=== PATIENT | female | born 1975 | race Caucasian/White ===

== ENCOUNTER 2018-11-08 11:36 | Outpatient (CLI) | payer BC ==
[~2018-11-08] VITALS: Ht 149.2 cm; Wt 57.2 kg
[2018-11-08] MEDS ORDERED: ELAG150T PO (11:37)
== END 2018-11-08 11:54 ==
LOC: PREOP 11:36
PROVIDERS: ATTEND Obstetrics & Gynecology
DX: Z01.818 Encounter for other preprocedural examination (principal)

== ENCOUNTER 2018-11-12 09:39 | Day surgery (SDC) | payer BC ==
[~2018-11-12] VITALS: Ht 149.2 cm; Wt 57.2 kg
[~2018-11-12 09:39] MED LIST: ELAG150T PO
[2018-11-12 09:50] VITALS: BP 110/81
--- NOTE | 2018-11-12 10:08 | Progress Note-Pre Operative ---
Pre-Operative Progress Note H&P Reviewed The H&P was reviewed, patient examined and no changes noted. Date Seen by Provider: Nov 12, 2018 Time Seen by Provider: 10:10 Date H&P Reviewed: Nov 12, 2018 Time H&P Reviewed: 07:30 Pre-Operative Diagnosis: endometriosis, pelvic pain, chronic LEONIE ROSS DO Nov 12, 2018 10:08
[2018-11-12] MEDS ORDERED: ceFAZolin INJECTION 1,000 MG in WATER (STERILE) FOR INJECTION 10 ML IV ONE (10:15)
[2018-11-12] MEDS: LACTATED RINGERS 1,000 ML IV PRN ×3 (10:17→12:03)
[2018-11-12] MEDS ORDERED: BUPIVACAINE 0.25% 30 ML (SENSORCAINE) VIAL ONE (10:22)
[2018-11-12] MEDS ORDERED: proPOfol 200 MG/20 ML (DIPRIVAN) VIAL IV ONE (10:22)
[2018-11-12] MEDS ORDERED: fentaNYL INJECTION 100 MCG/2 ML AMP ONE (10:22)
[2018-11-12] MEDS ORDERED: LIDOCAINE PF 2% 5 ML (XYLOCAINE) VIAL ONE (10:22)
[2018-11-12] MEDS ORDERED: ONDANSETRON 4 MG/2 ML (SDV) Z0FRAN ONE (10:22)
[2018-11-12] MEDS ORDERED: ROCURONIUM 10 MG/ML 5 ML SYRINGE IV ONE (10:22)
[2018-11-12] MEDS ORDERED: MIDAZOLAM 2 MG/2 ML (VERSED) VIAL ONE (10:22)
[2018-11-12 10:26] LABS: BASOPHILS % (AUTO) 1 % (0-10); EOSINOPHILS # (AUTO) 0.1 10^3/uL (0.0-0.3); EOSINOPHILS % (AUTO) 1 % (0-10); HEMATOCRIT 45 % (35-52); HEMOGLOBIN 15.2 G/DL (11.5-16.0); LYMPHOCYTES # (AUTO) 1.5 X 10^3 (1.0-4.0); LYMPHOCYTES % (AUTO) 33 % (12-44); MEAN CORPUSCULAR HEMOGLOBIN 30 PG (25-34); MEAN CORPUSCULAR HGB CONC 34 G/DL (32-36); MEAN CORPUSCULAR VOLUME 88 FL (80-99); MEAN PLATELET VOLUME 10.7 FL (7.4-10.4); MONOCYTES # (AUTO) 0.4 X 10^3 (0.0-1.0); MONOCYTES % (AUTO) 8 % (0-12); NEUTROPHILS # (AUTO) 2.6 X 10^3 (1.8-7.8); NEUTROPHILS % (AUTO) 57 % (42-75); PLATELET COUNT 215 10^3/uL (130-400); RED CELL DISTRIBUTION WIDTH 12.8 % (10.0-14.5); WHITE BLOOD COUNT 4.6 10^3/uL (4.3-11.0)
[2018-11-12] MEDS ORDERED: SEVOFLURANE (ULTANE) 15 ML INHAL SOLN ONE ×8 (10:26→12:16)
[2018-11-12] MEDS ORDERED: DEXAMETHASONE 10 MG/ML (DECADRON) 1 ML VIAL ONE (10:26)
--- OUTSIDE RECORDS SUMMARY | 2018-11-12 11:13 | XMS REPORT | Continuity of Care Document ---
Author Organization Unknown Address Unknown Allergies Active Description Code Type Severity Reaction Onset Reported/Identified Relationship to Patient Clinical Status Yes No Known Drug Allergies [id number] Drug Allergy Unknown N/A 11/08/2018 Medications There is no data. Problems Date Dx Coded Attending Type Code Diagnosis Diagnosed By 08/18/2015 Ot 620.2 09/21/2015 Ot 620.2 09/21/2015 ANTHONY LEVINE A COURTROOM REPORTER Ot N83.9 09/21/2015 DREW LEVINESAY A COURTROOM REPORTER Ot N85.2 09/21/2015 ANTHONY LEVINE A COURTROOM REPORTER Ot N92.6 09/21/2015 DREW LEVINESAY A COURTROOM REPORTER Ot Z87.42 09/23/2015 Ot 620.2 09/23/2015 DREW LEVINESAY A COURTROOM REPORTER Ot N83.9 09/23/2015 DREW LEVINESAY A COURTROOM REPORTER Ot N85.2 09/23/2015 DREW LEVINESAY A COURTROOM REPORTER Ot N92.6 09/23/2015 DREW LEVINESAY A COURTROOM REPORTER Ot Z87.42 10/12/2015 Ot 620.2 10/12/2015 DREW LEVINESAY A COURTROOM REPORTER Ot N83.9 10/12/2015 DREW LEVINESAY A COURTROOM REPORTER Ot N85.2 10/12/2015 DREW LEVINESAY A COURTROOM REPORTER Ot N92.6 10/12/2015 DREW LEVINESAY A COURTROOM REPORTER Ot Z87.42 03/15/2018 ANTHONY LEVINE A COURTROOM REPORTER Ot N83.9 NONINFLAMMATORY DISORD OF OVARY, FALLOP 03/15/2018 ANTHONY LEVINE A COURTROOM REPORTER Ot N85.2 HYPERTROPHY OF UTERUS 03/15/2018 ANTHONY LEVINE A COURTROOM REPORTER Ot N92.6 IRREGULAR MENSTRUATION, UNSPECIFIED 03/15/2018 ABNER, ANTHONY A COURTROOM REPORTER Ot Z87.42 PERSONAL HISTORY OF OTH DISEASES OF THE 03/18/2018 DENNYSDAMIAN ANTHONY A COURTROOM REPORTER Ot N83.9 NONINFLAMMATORY DISORD OF OVARY, FALLOP 03/18/2018 DENNYSDAMIAN ANTHONY A COURTROOM REPORTER Ot N85.2 HYPERTROPHY OF UTERUS 03/18/2018 DENNYSANTHONY SALGADO COURTROOM REPORTER Ot N92.6 IRREGULAR MENSTRUATION, UNSPECIFIED 03/18/2018 DENNYSDAMIAN ANTHONY A COURTROOM REPORTER Ot Z87.42 PERSONAL HISTORY OF OTH DISEASES OF THE 03/25/2018 ROSS DO, LEONIE C Ot Z12.31 ENCNTR SCREEN MAMMOGRAM FOR MALIGNANT NE 04/02/2018 ROSS DO, LEONIE C Ot Z12.31 ENCNTR SCREEN MAMMOGRAM FOR MALIGNANT NE 04/02/2018 ROSS DO, LEONIE C Ot Z12.31 ENCNTR SCREEN MAMMOGRAM FOR MALIGNANT NE 04/10/2018 ROSS DO, LEONIE C Ot Z12.31 ENCNTR SCREEN MAMMOGRAM FOR MALIGNANT NE 11/08/2018 ROSS DO, LEONIE C Ot Z01.818 ENCOUNTER FOR OTHER PREPROCEDURAL EXAMIN 11/09/2018 ROSS DO, LEONIE C Ot Z01.818 ENCOUNTER FOR OTHER PREPROCEDURAL EXAMIN 11/12/2018 DENNYSDAMIAN ANTHONY A COURTROOM REPORTER Ot N83.9 NONINFLAMMATORY DISORD OF OVARY, FALLOP 11/12/2018 DENNYSDAMIAN ANTHONY A COURTROOM REPORTER Ot N85.2 HYPERTROPHY OF UTERUS 11/12/2018 ANTHONY LEVINE COURTROOM REPORTER Ot N92.6 IRREGULAR MENSTRUATION, UNSPECIFIED 11/12/2018 DENNYSDAMIAN ANTHONY A COURTROOM REPORTER Ot Z87.42 PERSONAL HISTORY OF OTH DISEASES OF THE Procedures There is no data. Results Test Result Range Urine beta human chorionic gonadotropin (hCG) measurement - 11/12/18 09:45 Urine beta human chorionic gonadotropin (hCG) measurement NEGATIVE NEGATIVE Complete blood count (CBC) with automated white blood cell (WBC) differential - 11/12/18 10:17 Blood leukocytes automated count (number/volume) 4.6 10*3/uL 4.3-11.0 Blood erythrocytes automated count (number/volume) 5.07 10*6/uL 4.35-5.85 Venous blood hemoglobin measurement (mass/volume) 15.2 g/dL 11.5-16.0 Blood hematocrit (volume fraction) 45 % 35-52 Automated erythrocyte mean corpuscular volume 88 [foz_us] 80-99 Automated erythrocyte mean corpuscular hemoglobin (mass per erythrocyte) 30 pg 25-34 Automated erythrocyte mean corpuscular hemoglobin concentration measurement ( mass/volume) 34 g/dL 32-36 Automated erythrocyte distribution width ratio 12.8 % 10.0-14.5 Automated blood platelet count (count/volume) 215 10*3/uL 130-400 Automated blood platelet mean volume measurement 10.7 [foz_us] 7.4-10.4 Automated blood neutrophils/100 leukocytes 57 % 42-75 Automated blood lymphocytes/100 leukocytes 33 % 12-44 Blood monocytes/100 leukocytes 8 % 0-12 Automated blood eosinophils/100 leukocytes 1 % 0-10 Automated blood basophils/100 leukocytes 1 % 0-10 Blood neutrophils automated count (number/volume) 2.6 10*3 1.8-7.8 Blood lymphocytes automated count (number/volume) 1.5 10*3 1.0-4.0 Blood monocytes automated count (number/volume) 0.4 10*3 0.0-1.0 Automated eosinophil count 0.1 10*3/uL 0.0-0.3 Automated blood basophil count (count/volume) 0.0 10*3/uL 0.0-0.1 Encounters ACCT No. Visit Date/Time Discharge Status Pt. Type Provider Facility Loc./Unit Complaint [id number] 11/08/2018 11:36:00 11/08/2018 11:54:00 DIS Outpatient LEONIE ROSS DO [facility] PREOP ENDOMETRIOSIS [id number] 03/22/2018 14:59:00 03/22/2018 23:59:59 CLS Outpatient LEONIE ROSS DO [facility] RAD Z12.31 SCREENING MAMMO [id number] 08/18/2015 09:58:00 08/18/2015 23:59:59 CLS Outpatient ANTHONY LEVINE APRN [facility] RAD ENLARGED UTERUS, IRREGULAR MENSES [id number] 11/12/2018 09:39:00 ACT Outpatient LEONIE ROSS DO [facility] ENDOMETRIOSIS [id number] 10/17/2011 09:11:00 Document Registration
[2018-11-12] MEDS ORDERED: PHENYLEPHRINE 100 MCG/ML 10 ML (ANESTHESIA) SYR ONE (11:40)
[2018-11-12] MEDS ORDERED: NEOSTIGMINE 1 MG/ML 5 ML SYRINGE ONE (12:18)
[2018-11-12] MEDS ORDERED: GLYCOPYRROLATE 0.2 MG/ML (ROBINUL) 2 ML VIAL ONE (12:18)
[2018-11-12] MEDS ORDERED: KETOROLAC 30 MG/ML VIAL ONE (12:28)
[2018-11-12] MEDS ORDERED: HYDROmorphone 2 MG/ML VIAL (DILAUDID) IV ONE (13:00)
[2018-11-12] MEDS ORDERED: morphine INJ 10 MG/ML 1ML (SYR OR VIAL) IVP ONE (13:00)
[2018-11-12] MEDS ORDERED: ONDANSETRON 4 MG/2 ML (SDV) Z0FRAN IVP PRN ×2 (13:00→14:30)
[2018-11-12] MEDS ORDERED: MEPERIDINE (DEMEROL) INJ 50 MG/ML IVP ONE (13:00)
--- NOTE | 2018-11-12 13:45 | NUR ---
RENITA NEAL admitted to room , with an admitting diagnosis of postop laperotomy, on 11/12/18 from [facility] via cart, accompanied by par staff.RENITA NEAL introduced to surroundings, call light, bed controls, phone, TV, temperature control, lights, meal times, smoking policy, visitor policy, side rail policy, bathrooms and showers. Patient Rights given to patient in the handbook. RENITA NEAL verbalizes understanding that [facility] is not responsible for the loss or damage to any personal effects or valuables that are kept in the patients posession during their hospitalization. The following Patient Care Plans were discussed with the patient: Discharge Planning, pain management, postop care plan. RENITA NEAL verbalizes understanding of Interdisciplinary Patient Education. Patient and/or family were informed about the Rapid Response Team and its purpose.
[2018-11-12 14:15] VITALS: BP 108/65
[2018-11-12] MEDS ORDERED: morphine INJ 10 MG/ML 1ML (SYR OR VIAL) IVP PRN (14:30)
--- NOTE | 2018-11-12 14:37 | Operative Report ---
Operative Report Date of Procedure/Surgery Nov 12, 2018 Surgeon (s) LEONIE ROSS DO Club Attendant (s): NA Post-Operative Diagnosis Stage IV endometriosis, left endometrioma Procedure Performed diagnostic laparoscopy, converted to minilaparotomy with left salpingoophorectomy, right salpingectomy, extensive lysis of adhesions Description of Procedure Anesthesia Type: General Estimated blood loss (mL): 100 Specimen(s) collected/removed left tube and ovary, right tube Description of the Procedure with informed consent the patient was taken to the operating room where general anesthesia was found to be adequate. She was prepped and draped in the usual sterile fashion in the dorsolithotomy position. A speculum was placed in the vagina and the cervix was grasped with a tenaculum and a Jose uterine manipulator was placed in the cervix. The bladder was drained or clear, yellow urine. Attention was now turned to the abdomen where the umbilicus was injected with 0.5% Marcaine and then a 5 mm skin incision was made with a scalpel. a Veress needle was inserted and intraabdominal placement was confirmed with a saline drop test and a drop in pressure. A 5 mm trocar was inserted under direct visualization with an Optiview. A survey of the pelvis revealed extensive adhesions, endometriosis in multiple locations, a 5-6 cm cyst on the left ovary that appeared to be an endometrioma. The tube and ovary were adherent and then adherent to the colon on the left and the posterior uterus. The culdesac was completely obliterated. The right tube was adherent as well. At this time I determined that it would be safer to proceed with a laparotomy. I made a Pfannenstiel incision with the scalpel and then this was carried through to the underlying layer of fascia with the scalpel. This was incised in the midline and then the rectus muscles were dissected off the underlying muscles in a blunt and sharp fashion. The rectus muscles were in the midline and then the peritoneum was entered with the Metzenbaum scissors and this incision was extended superiorly and inferiorly. The bowel was packed away and a small Woodrow retractor was placed. i then did extensive lysis of adhesions of the colon to the uterus and the uterus to the posterior pelvis. Then I dissected the right tube off the ovarian fossa and it was noted to be clubbed. At this time I performed extensively lysis of the left tube to the colon. This was done bluntly. I then was able to isolated the infundibulopelvic ligament on the left. Grasped this with a Z clamp and then incised and tied with 2-0 Vicryl. I then clamped the tube at the cornu and this was incised and tied. This thus removed the left tube and ovary. I now removed the right tube by incising along the mesosalpinx. Grasping the tube at the cornu and then excision and ligating with the 2-0 Vicryl. I now excessively irrigated the pelvis. There was good hemostasis. At this point the lap sponges were removed and the Woodrow was removed. The peritoneum was closed with 3-0 Vicryl. The fascia was reapproximated with 0 Vicryl in a running fashion. The skin was closed with 4-0 Monocryl in a running fashion. A bandage was placed. sponge, lap, needle and instrument counts were correct times two. the patient was awakened and taken to recovery in a stable. condition. Findings of the Procedure large (5-6 cm) endometrioma on the left, adherent to the colon and to the left tube and posterior uterus. The culdesac is completely obliterated, the right tube is clubbed and adherent to the left ovary as well and the ovarian fossa. Multiple foci of endometriosis throughout the pelvis. Allergies and Home Medications Allergies Coded Allergies: No Known Drug Allergies (Unverified , 11/08/18) Home Medications Acetaminophen 500 Mg Tablet, 1,000 MG PO Q8H Prescribed by: LEONIE ROSS on 11/13/18833 Docusate Sodium 100 Mg Capsule, 100 MG PO BID Prescribed by: LEONIE ROSS on 11/13/18833 Elagolix Sodium 150 Mg Tablet, 150 MG PO BID increase to twice daily. Will continue for at least three more months Prescribed by: LEONIE ROSS on 11/13/18833 Ibuprofen 600 Mg Tablet, 600 MG PO Q6H Prescribed by: LEONIE ROSS on 11/13/18833 Oxycodone Hcl 5 Mg Tab, 5 MG PO Q4H PRN for PAIN-SEVERE Prescribed by: LEONIE ROSS on 11/13/18833 Patient Home Medication List Home Medication List Reviewed: Yes LEONIE ROSS DO Nov 12, 2018 14:37
[2018-11-12] MEDS: ACETAMINOPHEN 500 MG TAB (TYLENOL) PO SCH (19:05)
[2018-11-12 19:30] VITALS: BP 107/65
[2018-11-12] MEDS: KETOROLAC 30 MG/ML VIAL IVP SCH (19:34)
[2018-11-12] MEDS: LACTATED RINGERS 1,000 ML IV SCH ×2 (20:03→20:04)
[2018-11-13] VITALS: BP 97/57
[2018-11-13] MEDS: KETOROLAC 30 MG/ML VIAL IVP SCH (02:30)
[2018-11-13] MEDS: ACETAMINOPHEN 500 MG TAB (TYLENOL) PO SCH ×2 (02:30→12:29)
[2018-11-13] MEDS: LACTATED RINGERS 1,000 ML IV SCH ×2 (03:50→03:53)
[2018-11-13 04:20] VITALS: BP 92/50
--- NOTE | 2018-11-13 08:14 | Anesthesia-General Post-Op ---
General Patient Condition Mental Status/LOC: Same as Preop Cardiovascular: Satisfactory Nausea/Vomiting: Absent Respiratory: Satisfactory Pain: Controlled Complications: Absent Post Op Complications Complications None Follow Up Care/Instructions Patient Instructions None needed. Anesthesia/Patient Condition Patient Condition Patient is doing well, no complaints, stable vital signs, no apparent adverse anesthesia problems. No complications reported per nursing. D/C home per [facility] Criteria: Yes MARIAM HOLMAN CRNA Nov 13, 2018 08:14
[2018-11-13] MEDS ORDERED: OXC5T PO (08:34)
[2018-11-13] MEDS ORDERED: IBUP-844 PO (08:34)
[2018-11-13] MEDS ORDERED: ELAG150T PO (08:34)
[2018-11-13] MEDS ORDERED: DOCU100C37 PO (08:34)
[2018-11-13] MEDS ORDERED: ACET-77 PO (08:34)
--- NOTE | 2018-11-13 08:36 | Discharge Inst-Women's Service ---
Discharge Inst-Women's Serv Depart Medication/Instructions New, Converted or Re-Newed RX: RX on Chart Instructions increase Orilissa to twice daily dosing. Will recommend continue for at least three more months Final Diagnosis Stage IV (four) endometriosis Left endometrioma Consults/Follow Up Additional Follow Up: Yes (1 -2 weeks with Greg) Activity Activity: Activity as Tolerated Driving Instructions: No Driving for 1 Week NO SMOKING: NO SMOKING Nothing Inside Vagina: No Douching, No [place] (1-2 weeks), No Tampons Diet Discharge Diet: No Restrictions Symptoms to Report to : Swelling Increased, Bleeding Excessive, Pain Increased, Constipation(Persistant), Fever Over 101 Degrees F, Urination Difficulty, Vaginal Bleeding Increase, Vaginal Discharge Foul For Any Problems or Questions: Contact Your Physician Skin/Wound Care Infection Signs and Symptoms: Increased Redness, Foul Odor of Wound, Increased Drainage, Skin Itchy or Has a Rash, Increased Swelling, Temperature Above 101 F Operative Area Clean and Dry: Keep Incision Clean/Dry Stitches/Latanya/Dermabond: Dermabond Bathing Instructions: LEONIE Irizarry DO Nov 13, 2018 08:36
[2018-11-13 08:55] LABS: BASOPHILS % (AUTO) 0 % (0-10); EOSINOPHILS % (AUTO) 0 % (0-10); HEMATOCRIT 39 % (35-52); HEMOGLOBIN 13.3 G/DL (11.5-16.0); LYMPHOCYTES # (AUTO) 1.3 X 10^3 (1.0-4.0); LYMPHOCYTES % (AUTO) 14 % (12-44); MEAN CORPUSCULAR HEMOGLOBIN 30 PG (25-34); MEAN CORPUSCULAR HGB CONC 34 G/DL (32-36); MEAN CORPUSCULAR VOLUME 90 FL (80-99); MEAN PLATELET VOLUME 10.5 FL (7.4-10.4); MONOCYTES # (AUTO) 0.8 X 10^3 (0.0-1.0); MONOCYTES % (AUTO) 9 % (0-12); NEUTROPHILS # (AUTO) 7.3 X 10^3 (1.8-7.8); NEUTROPHILS % (AUTO) 77 % (42-75); PLATELET COUNT 233 10^3/uL (130-400); WHITE BLOOD COUNT 9.5 10^3/uL (4.3-11.0)
[2018-11-13] MEDS ORDERED: DOCUSATE SODIUM 100 MG (COLACE) CAP PO SCH (09:00)
--- NOTE | 2018-11-13 09:10 | NUR ---
Dr Garza here to see pt. Dr Garza reports pt voided. D/C orders rec'd.
[2018-11-13 09:16] LABS: BUN/CREATININE RATIO 17; CALCIUM 9.2 MG/DL (8.5-10.1); CARBON DIOXIDE 24 MMOL/L (21-32); CHLORIDE 105 MMOL/L (98-107); CREATININE SERUM 0.71 MG/DL (0.60-1.30); GFR ESTIMATED > 60; GLUCOSE 101 MG/DL (70-105); POTASSIUM 3.7 MMOL/L (3.6-5.0); SODIUM 138 MMOL/L (135-145)
[2018-11-13] MEDS ORDERED: IBUPROFEN 600 MG (MOTRIN) TAB PO ONE (09:45)
[2018-11-13 09:49] VITALS: BP 100/63
--- NOTE | 2018-11-13 10:02 | NUR ---
Follow up appt mad with Dr. Garza's office
--- NOTE | 2018-11-13 12:35 | NUR ---
Discharge instructions explained to pt with copy provided to pt along with oxycodone script. Pt notified of follow up appt made and scripts available at [facility]. Pt verbalizes understanding of instructions, and signs to verify. Denies questions or concerns at this time. Extra pads and underwear provided per pt request.
--- NOTE | 2018-11-13 12:45 | NUR ---
Pt taken off unit via wheelchair accompanied by RN to awaiting private vehicle. All personal belongings taken to vehicle per S.O. No s/s of distress noted
[2018-11-13] MEDS ORDERED: SIMETHICONE 80 MG (MYLICON) CHEW PO SCH (13:00)
[2018-11-13] MEDS ORDERED: IBUPROFEN 600 MG (MOTRIN) TAB PO SCH (14:00)
== END 2018-11-13 12:45 | disposition home or self-care (01) ==
LOC: SDC 09:39 → WS 13:45 → SDC 11-13 12:45
PROVIDERS: ATTEND Obstetrics & Gynecology
DX: N80.1 Endometriosis of ovary (principal); N80.3 Endometriosis of pelvic peritoneum; N73.6 Female pelvic peritoneal adhesions (postinfective); N94.19 Other specified dyspareunia; N80.2 Endometriosis of fallopian tube; N94.89 Other specified conditions associated with female genital organs and menstrual cycle; N83.202 Unspecified ovarian cyst, left side
CPT/HCPCS: 36415; 80048; 84703; 85025; 87081; 88305; 94664

== ENCOUNTER 2019-03-04 17:39 | Emergency (ER) | payer BC ==
[~2019-03-04] VITALS: Ht 152.4 cm; Wt 54.9 kg
[~2019-03-04 17:39] MED LIST changes: +ACET-77 PO; +DOCU100C37 PO; +IBUP-844 PO; +OXC5T PO
[2019-03-04 17:59] LABS: BASOPHILS % (AUTO) 0 % (0-10); EOSINOPHILS % (AUTO) 1 % (0-10); HEMATOCRIT 47 % (35-52); HEMOGLOBIN 16.1 G/DL (11.5-16.0); LYMPHOCYTES # (AUTO) 0.6 X 10^3 (1.0-4.0); LYMPHOCYTES % (AUTO) 9 % (12-44); MEAN CORPUSCULAR HEMOGLOBIN 30 PG (25-34); MEAN CORPUSCULAR HGB CONC 35 G/DL (32-36); MEAN CORPUSCULAR VOLUME 87 FL (80-99); MEAN PLATELET VOLUME 10.4 FL (7.4-10.4); MONOCYTES # (AUTO) 0.4 X 10^3 (0.0-1.0); MONOCYTES % (AUTO) 5 % (0-12); NEUTROPHILS % (AUTO) 85 % (42-75); PLATELET COUNT 213 10^3/uL (130-400); RED CELL DISTRIBUTION WIDTH 13.5 % (10.0-14.5)
[2019-03-04 18:16] LABS: BILIRUBIN,URINE NEGATIVE (NEGATIVE); CLARITY,URINE CLEAR; COLOR,URINE YELLOW; GLUCOSE, URINE (UA) NEGATIVE (NEGATIVE); KETONES,URINE 2+ (NEGATIVE); LEUKOCYTE ESTERASE ,URINE 1+ (NEGATIVE); NITRITE,URINE NEGATIVE (NEGATIVE); PH,URINE 6 (5-9); PROTEIN,URINE 2+ (NEGATIVE); UROBILINOGEN,URINE NORMAL (NORMAL)
[2019-03-04 18:19] LABS: ALANINE AMINOTRANSFERASE 27 U/L (0-55); ALBUMIN 4.6 GM/DL (3.2-4.5); ALKALINE PHOSPHATASE 103 U/L (40-136); AMYLASE 46 U/L (25-125); BILIRUBIN,TOTAL 0.5 MG/DL (0.1-1.0); BUN/CREATININE RATIO 11; CALCIUM 9.9 MG/DL (8.5-10.1); CARBON DIOXIDE 21 MMOL/L (21-32); CHLORIDE 101 MMOL/L (98-107); CREATININE SERUM 0.76 MG/DL (0.60-1.30); GFR ESTIMATED > 60; GLUCOSE 85 MG/DL (70-105); LIPASE 17 U/L (8-78); SODIUM 137 MMOL/L (135-145); TOTAL PROTEIN 8.3 GM/DL (6.4-8.2)
[2019-03-04 18:20] LABS: BACTERIA,URINE FEW /HPF; HYALINE CASTS, URINE RARE /LPF; RBC,URINE RARE /HPF
--- NOTE | 2019-03-04 18:45 | NUR ---
Recieved pt report from DILAN Kurtz to assume care of pt @ this time.
--- NOTE | 2019-03-04 19:14 | ED GI ---
General Chief Complaint: Abdominal/GI Problems Stated Complaint: N/D;ABD PAIN Nursing Triage Note: Pt ambulates to rm 9 with complaints of suprapubic abdominal pain with N/V and diarrhea since 03/01/19. Pt reports she's also had fever/chills since 03/02/19. Pt said she hasn't been able to keep any food/drink down since Sunday d/t nausea and diarrhea. Sepsis Screen: Possible Sepsis Risk Source of Information: Patient Exam Limitations: No Limitations History of Present Illness Date Seen by Provider: Mar 04, 2019 Time Seen by Provider: 17:40 Initial Comments 43-year-old female who presents to the emergency room with complaints of generalized abdominal pain with nausea and vomiting and diarrhea for the past 4 days. She reports that she has had intermittent fevers and chills. She reports that she has not minimal keep anything down due to her nausea and vomiting. Timing/Duration: 3-4 Days Severity/Quality: Cramping Location: Generalized Abdomen Associated Symptoms: Nausea/Vomiting Allergies and Home Medications Allergies Coded Allergies: No Known Drug Allergies (Unverified , 11/08/18) Home Medications Acetaminophen 500 Mg Tablet, 1,000 MG PO Q8H Prescribed by: LEONIE ROSS on 11/13/18833 Docusate Sodium 100 Mg Capsule, 100 MG PO BID Prescribed by: LEONIE ROSS on 11/13/18833 Elagolix Sodium 150 Mg Tablet, 150 MG PO BID increase to twice daily. Will continue for at least three more months Prescribed by: LEONIE ROSS on 11/13/1834 Hyoscyamine Sulfate 0.125 Mg Tab.subl, 0.125 MG SL Q4H PRN for CRAMPS Prescribed by: RAKESH REECE on 03/04/191914 Ibuprofen 600 Mg Tablet, 600 MG PO Q6H Prescribed by: LEONIE ROSS on 11/13/1834 Nitrofurantoin Monohyd/M-Cryst 100 Mg Capsule, 1 TAB PO BID Prescribed by: RAKESH REECE on 03/04/191914 Ondansetron 4 Mg Tab.rapdis, 4 MG PO Q4H PRN for NAUSEA/VOMITING-1ST LINE Prescribed by: RAKESH REECE on 03/04/191914 Oxycodone Hcl 5 Mg Tab, 5 MG PO Q4H PRN for PAIN-SEVERE Prescribed by: LEONIE ROSS on 11/13/18 4799 Patient Home Medication List Home Medication List Reviewed: Yes Review of Systems Review of Systems Constitutional: see HPI, chills, fever Gastrointestinal: See HPI, Abdominal Pain, Diarrhea, Nausea, Vomiting All Other Systems Reviewed Negative Unless Noted: Yes Past Nnbtcps-Qugqqp-Xwgiuk Hx Past Med/Social Hx: Reviewed Nursing Past Med/Soc Hx Patient Social History Alcohol Use: Denies Use Recreational Drug Use: No Smoking Status: Never a Smoker 2nd Hand Smoke Exposure: No Recent Foreign Travel: No Contact w/Someone Who Travel: No Recent Infectious Disease Expo: No Recent Hopitalizations: No Seasonal Allergies Seasonal Allergies: No Past Medical History Surgeries: No Respiratory: No Cardiac: No Neurological: No Female Reproductive Disorders: Endometriosis Genitourinary: No Gastrointestinal: No Musculoskeletal: No Endocrine: No HEENT: No Cancer: No Psychosocial: No Integumentary: No Blood Disorders: No Family Medical History Reviewed Nursing Family Hx Physical Exam Vital Signs Vital Signs - First Documented 03/04/19 17:55 Temp 100.0 Pulse 101 Resp 18 B/P (MAP) 127/91 (103) Pulse Ox 99 O2 Delivery Room Air Capillary Refill : Less Than 3 Seconds Height/Weight/BMI Height: 5'0" Weight: 121lbs. 0.0oz. [id number]; 25.7 BMI Method:Stated General Appearance: WD/WN, no apparent distress Respiratory: chest non-tender, lungs clear, normal breath sounds, no respiratory distress, no accessory muscle use Cardiovascular: normal peripheral pulses, regular rate, rhythm, no edema, no gallop, no JVD, no murmur Gastrointestinal: normal bowel sounds, non tender, soft, no organomegaly, no pulsatile mass Extremities: normal capillary refill Neurologic/Psychiatric: alert, normal mood/affect, oriented x 3 Skin: normal color, warm/dry Progress/Results/Core Measures Results/Orders Lab Results Laboratory Tests Test 03/04/19 17:51 03/04/19 18:13 Range/Units White Blood Count 7.0 4.3-11.0 10^3/uL Red Blood Count 5.36 4.35-5.85 10^6/uL Hemoglobin 16.1 H 11.5-16.0 G/DL Hematocrit 47 35-52 % Mean Corpuscular Volume 87 80-99 FL Mean Corpuscular Hemoglobin 30 25-34 PG Mean Corpuscular Hemoglobin Concent 35 32-36 G/DL Red Cell Distribution Width 13.5 10.0-14.5 % Platelet Count 213 130-400 10^3/uL Mean Platelet Volume 10.4 7.4-10.4 FL Neutrophils (%) (Auto) 85 H 42-75 % Lymphocytes (%) (Auto) 9 L 12-44 % Monocytes (%) (Auto) 5 0-12 % Eosinophils (%) (Auto) 1 0-10 % Basophils (%) (Auto) 0 0-10 % Neutrophils # (Auto) 6.0 1.8-7.8 X 10^3 Lymphocytes # (Auto) 0.6 L 1.0-4.0 X 10^3 Monocytes # (Auto) 0.4 0.0-1.0 X 10^3 Eosinophils # (Auto) 0.0 0.0-0.3 10^3/uL Basophils # (Auto) 0.0 0.0-0.1 10^3/uL Sodium Level 137 135-145 MMOL/L Potassium Level 4.0 3.6-5.0 MMOL/L Chloride Level 101 98-107 MMOL/L Carbon Dioxide Level 21 21-32 MMOL/L Anion Gap 15 H 5-14 MMOL/L Blood Urea Nitrogen 8 7-18 MG/DL Creatinine 0.76 0.60-1.30 MG/DL Estimat Glomerular Filtration Rate > 60 BUN/Creatinine Ratio 11 Glucose Level 85 70-105 MG/DL Calcium Level 9.9 8.5-10.1 MG/DL Corrected Calcium 8.5-10.1 MG/DL Total Bilirubin 0.5 0.1-1.0 MG/DL Aspartate Amino Transf (AST/SGOT) 26 5-34 U/L Alanine Aminotransferase (ALT/SGPT) 27 0-55 U/L Alkaline Phosphatase 103 40-136 U/L Total Protein 8.3 H 6.4-8.2 GM/DL Albumin 4.6 H 3.2-4.5 GM/DL Amylase Level 46 25-125 U/L Lipase 17 8-78 U/L Urine Color YELLOW Urine Clarity CLEAR Urine pH 6 5-9 Urine Specific [place] 1.015 L 1.016-1.022 Urine Protein 2+ H NEGATIVE Urine Glucose (UA) NEGATIVE NEGATIVE Urine Ketones 2+ H NEGATIVE Urine Nitrite NEGATIVE NEGATIVE Urine Bilirubin NEGATIVE NEGATIVE Urine Urobilinogen NORMAL NORMAL MG/DL Urine Leukocyte Esterase 1+ H NEGATIVE Urine RBC (Auto) 2+ H NEGATIVE Urine RBC RARE /HPF Urine WBC 2-5 /HPF Urine Squamous Epithelial Cells 2-5 /HPF Urine Crystals NONE /LPF Urine Bacteria FEW H /HPF Urine Casts PRESENT /LPF Urine Hyaline Casts RARE /LPF Urine Mucus SMALL H /LPF Urine Culture Indicated YES Micro Results Microbiology 03/04/19 Urine Culture - Final, Complete NO GROWTH My Orders Orders - RAKESH REECE Comprehensive Metabolic Panel (03/04/19 17:42) Lipase (03/04/19 17:42) Amylase (03/04/19 17:42) Ua Culture If Indicated (03/04/19 17:42) Ed Iv/Invasive Line Start (03/04/19 17:42) Cbc With Automated Diff (03/04/19 17:42) Urine Culture (03/04/19 18:13) Vital Signs/I&O 03/04/19 03/04/19 17:55 19:23 Temp 100.0 98.9 Pulse 101 99 Resp 18 17 B/P (MAP) 127/91 (103) 111/77 (88) Pulse Ox 99 99 O2 Delivery Room Air Room Air Blood Pressure Mean: 103 Progress Progress Note : Time: 19:10 Progress Note I have seen and evaluated the patient. I've informed her of her laboratory studies. I believe her symptoms to be viral. She agrees with plan of care, plans for discharge, return precautions were given. Departure Impression Primary Impression: Urinary tract infection Additional Impression: Nausea vomiting and diarrhea Disposition: HOME, SELF-CARE Condition: Stable/Unchanged Departure-Patient Inst. Decision time for Depature: 19:10 Referrals: [facility] (PCP/Family) Primary Care Physician Patient Instructions: Viral Gastroenteritis, Adult (DC), Urinary Tract Infection, Adult (DC) Add. Discharge Instructions: Take medication as directed. You may use OTC antidiarrheal medications as directed. Follow up with your primary care doctor with in 1 week for a recheck. Return to the emergency room for worsening symptoms or concerns as needed. All discharge instructions reviewed with patient and/or family. Voiced understanding. Scripts Ondansetron (Ondansetron Odt) 4 Mg Tab.rapdis 4 MG PO Q4H PRN for NAUSEA/VOMITING-1ST LINE, #14 TAB Prov: RAKESH REECE 03/04/19 Hyoscyamine Sulfate (Levsin-Sl) 0.125 Mg Tab.subl 0.125 MG SL Q4H PRN for CRAMPS, #14 TAB Prov: RAKESH REECE 03/04/19 Nitrofurantoin Monohyd/M-Cryst (Macrobid 100 mg Capsule) 100 Mg Capsule 1 TAB PO BID for 7 Days, #14 CAP Prov: RAKESH REECE 03/04/19 Work/School Note: Work Release Form Date Seen in the Emergency Department: Mar 04, 2019 Return to Work: Mar 07, 2019 Restrictions: No Restrictions RAKESH REECE Mar 04, 2019 19:14
[2019-03-04] MEDS ORDERED: NITR-65 PO (19:15)
[2019-03-04] MEDS ORDERED: HYOS0.1283 SL (19:15)
[2019-03-04] MEDS ORDERED: ONDA4TAB11 PO (19:15)
[2019-03-04 19:23] VITALS: BP 111/77
== END 2019-03-04 19:23 | disposition home or self-care (01) ==
LOC: EDUNIT# 17:39 → ER 17:40
DX: N39.0 Urinary tract infection, site not specified (principal); R19.7 Diarrhea, unspecified; Z87.42 Personal history of other diseases of the female genital tract
CPT/HCPCS: 36415; 80053; 81000; 82150; 83690; 85025; 87088

== ENCOUNTER → 2019-03-24 | Outpatient (CLI) | payer BC ==
[~2019-03-24] MED LIST changes: +HYOS0.1283 SL; +NITR-65 PO; +ONDA4TAB11 PO
--- NOTE | 2019-03-24 22:14 | Diagnostic Imaging Report ---
INDICATION: Screening The current study was also evaluated with a Computer Aided Detection (CAD) system. 3-D Tomographic imaging was also performed. Comparison made with prior examination from 03/22/2018. FINDINGS: The fibroglandular tissue is heterogeneously dense bilaterally. There is no dominant mass, spiculated lesion or suspicious calcification identified. Skin nipples and axilla are unremarkable. IMPRESSION: Negative. ACR BI-RADS Category 1: Negative. Result letter will be mailed to the patient. Note: At least 10% of breast cancer is not imaged by mammography. Dictated by: Dictated on workstation # [id number]
== END ==
LOC: RAD 09:07
PROVIDERS: ATTEND Obstetrics & Gynecology
DX: Z12.31 Encounter for screening mammogram for malignant neoplasm of breast (principal)
CPT/HCPCS: 77067

== ENCOUNTER 2020-12-08 05:35 | Outpatient (CLI) | payer BC ==
[~2020-12-08] VITALS: Ht 149.9 cm; Wt 52.2 kg
[~2020-12-08 05:35] MED LIST changes: -ACET-77 PO; +ACET-78 PO
== END 2020-12-09 10:38 | disposition home or self-care (01) ==
LOC: PREOP 05:35
PROVIDERS: ATTEND Obstetrics & Gynecology
DX: Z01.818 Encounter for other preprocedural examination (principal); N80.9 Endometriosis, unspecified

== ENCOUNTER 2020-12-14 09:08 | Day surgery (SDC) | payer BC ==
[~2020-12-14] VITALS: Ht 149.9 cm; Wt 52.2 kg
[2020-12-14] VITALS (9 sets, daily range): BP systolic 102–127; BP diastolic 62–95
[2020-12-14] MEDS ORDERED: LIDOCAINE/EPI 1%-1:200,000 (XYLOCAINE) 30 ML VIAL ONE (09:10)
[2020-12-14] MEDS ORDERED: ceFAZolin 2 GM IV Premixed 50 ML IV ONE (09:30)
[2020-12-14 09:36] LABS: BILIRUBIN,URINE NEGATIVE (NEGATIVE); CLARITY,URINE CLEAR; COLOR,URINE YELLOW; GLUCOSE, URINE (UA) NEGATIVE (NEGATIVE); KETONES,URINE NEGATIVE (NEGATIVE); LEUKOCYTE ESTERASE ,URINE NEGATIVE (NEGATIVE); NITRITE,URINE NEGATIVE (NEGATIVE); PROTEIN,URINE NEGATIVE (NEGATIVE)
--- NOTE | 2020-12-14 09:38 | Progress Note-Pre Operative ---
Pre-Operative Progress Note H&P Reviewed The H&P was reviewed, patient examined and no changes noted. Date Seen by Provider: December 14, 2020 Time Seen by Provider: 09:40 Date H&P Reviewed: December 14, 2020 Time H&P Reviewed: 09:40 Pre-Operative Diagnosis: stage Iv endometriosis, chronic pelvic pain LEONIE ROSS DO December 14, 2020 09:38
[2020-12-14 10:06] LABS: BACTERIA,URINE NEGATIVE /HPF; SQUAMOUS EPITHELIAL CELL,UR 0-2 /HPF; WBC,URINE RARE /HPF
[2020-12-14] MEDS ORDERED: fentaNYL INJ 100 MCG/2 ML AMP ONE ×2 (10:25→13:24)
[2020-12-14] MEDS ORDERED: MIDAZOLAM 2 MG/2 ML (VERSED) VIAL ONE (10:25)
[2020-12-14 10:37] LABS: BASOPHILS % (AUTO) 1 % (0-10); EOSINOPHILS # (AUTO) 0.1 10^3/uL (0.0-0.3); EOSINOPHILS % (AUTO) 2 % (0-10); HEMATOCRIT 41 % (35-52); LYMPHOCYTES # (AUTO) 0.7 10^3/uL (1.0-4.0); LYMPHOCYTES % (AUTO) 17 % (12-44); MEAN CORPUSCULAR HEMOGLOBIN 31 pg (25-34); MEAN CORPUSCULAR HGB CONC 34 g/dL (32-36); MEAN CORPUSCULAR VOLUME 89 fL (80-99); MEAN PLATELET VOLUME 10.3 fL (9.0-12.2); MONOCYTES # (AUTO) 0.4 10^3/uL (0.0-1.0); MONOCYTES % (AUTO) 9 % (0-12); NEUTROPHILS % (AUTO) 71 % (42-75); PLATELET COUNT 244 10^3/uL (130-400); WHITE BLOOD COUNT 4.3 10^3/uL (4.3-11.0)
[2020-12-14] MEDS: LACTATED RINGERS 1,000 ML IV PRN ×3 (10:39→12:36)
[2020-12-14 10:50] LABS: BAND NEUTROPHILS 1 %; EOSINOPHILS % (MANUAL) 4 %; LYMPHOCYTES % (MANUAL) 16 %; MONOCYTES % (MANUAL) 10 %; NEUTROPHILS % (MANUAL) 69 %
[2020-12-14 10:51] LABS: RBC MORPH NORMAL
[2020-12-14] MEDS ORDERED: LIDOCAINE PF 2% 5 ML (XYLOCAINE) VIAL ONE (13:26)
[2020-12-14] MEDS ORDERED: proPOfol 200 MG/20 ML (DIPRIVAN) VIAL IV ONE (13:26)
[2020-12-14] MEDS ORDERED: ONDANSETRON 4 MG/2 ML (SDV) Z0FRAN ONE (13:26)
[2020-12-14] MEDS ORDERED: NEOSTIGMINE 3 MG/3 ML VIAL ONE (13:26)
[2020-12-14] MEDS ORDERED: GLYCOPYRROLATE 0.2 MG/ML (ROBINUL) 2 ML VIAL ONE (13:26)
[2020-12-14] MEDS ORDERED: ROCURONIUM 10 MG/ML 5 ML SYRINGE IV ONE (13:26)
[2020-12-14] MEDS ORDERED: SEVOFLURANE (ULTANE) 15 ML INHAL SOLN ONE (14:06)
[2020-12-14] MEDS ORDERED: CHLORASEPTIC LOZENGE MM PRN (14:15)
[2020-12-14] MEDS ORDERED: morphine INJ 4 MG/ML 1 ML (VIAL/SYRINGE) IVP PRN (14:15)
[2020-12-14] MEDS ORDERED: KETOROLAC 30 MG/ML VIAL IV SCH (14:15)
[2020-12-14] MEDS ORDERED: ONDANSETRON 4 MG (ZOFRAN) ORAL DISSOLVE TAB PO PRN (14:15)
[2020-12-14] MEDS ORDERED: SIMETHICONE 80 MG (MYLICON) CHEW PO PRN (14:15)
--- NOTE | 2020-12-14 14:20 | Operative Report ---
Operative Report Date of Procedure/Surgery December 14, 2020 Surgeon (s) LEONIE ROSS DO Traffic Director (s): NA Post-Operative Diagnosis stage IV endometriosis right endometrioma with adhesions to posterior uterus, right pelvic side wall, bowel endometriosis Procedure Performed RATH, extensive LYNDA (> 90 minutes) resection of endometriosis right oophorectomy Description of Procedure Anesthesia Type: General Estimated blood loss (mL): 250 Specimen(s) collected/removed uterus, right ovary multiple peritoneal biopsies Description of the Procedure After informed consent was obtained, patient was taken into the operating room where general anesthetic was found to be adequate. She was prepped and draped in the usual sterile fashion in the dorsal lithotomy position. A Soto catheter was placed. A speculum was placed in the vagina. The cervix was visualized and the anterior lip was grasped with a sharp toothed tenaculum. The uterus was sounded and depth was approximately 8 centimeters. I placed the Alaina device (12 cm) and a 3.5 cm collar was advanced over the cervix. I inserted the Alaina without difficulty, inflating the balloon and securing it around the fornix of the cervix. The collar was then secured with sutures at 12 o'clock. Attention was then turned to the patient's abdomen. The skin was injected with lidocaine with epinephrine. A supraumbilical incision was made about 8 mm in length. A Veress needle was inserted and I confirmed intraabdominal placement with a drop in pressure and the saline drop test. The opening pressure was 8 mmHg. I then insufflated the abdomen to a maximum of 15 mmHg with warmed CO2 gas. I placed an additional 8 mm trocar in the left abdomen lateral to the umbilicus approximately 15 cm. The second robotic port was placed about 12 cm lateral to the right umbilical placement. This was an 8 mm trocar. These were placed under direct visualization of the laparoscope. lidocaine with epihephrine was injected prior to placement of all trocars. When all placements were confirmed, the patient was placed in steep Trendelenburg allowing adequate visualization and the robot was brought in for docking. The docking was accomplished without difficulty. I then took over the command of the robot utilizing the vessel sealer and monopolar césar. The patient had known stage IV endometriosis and had used orilissa post operatively until she had reached the maximum time for endometriosis. She had previously had her tibes removed and her left ovary due to a large endometrioma. We had planned to leave the right ovary if possible, but there was too much damage to the ovary due to adhesions and the endometrioma so the ovary was removed as well. The culdesac was obliterated and the omentum and bowel mesentery was dissected off in blunt fashion. The bowel itself was not adherent. I took great care to avoid any cautery near the bowel so there was topical oozing. The dissection took nearly an hour and half of the surgical time. Eventually, I was able to visualize the round ligaments bilaterally and grasped them and cauterized with bipolar cautery and then cut with my césar. At this point, I had to dissect the ovary from its adhesions. As I did this susannah k fluid consistent with endometrioma, spilled out. This was irrigated and suctioned. I was able to then dissect the ovary off of the uterus. I removed the portion of the ovary that contained the endometrioma. The ovary appeared otherwise normal. As the tubes had already been removed, I moved my dissection to the posterior leaves of the broad ligament. I dissected the posterior leaves of the broad ligament off the uterine arteries skeletonizing them bilaterally. I then took a second clamp with the bipolar cautery and with the césar, transected the vessels away from the lateral aspect to the cervical stroma. I dissected the anterior peritoneum off the lower uterine segment. I continually pushed the bladder back and I took excessively great care to avoid bladder injury. I then dissected in a V fashion towards the midline between the uterosacral ligaments. This allowed me to skeletonize the uterine vessels bilaterally. The balloon on the ALAINA was insufflated. This allowed me to see the ALAINA circumferentially. I then performed a colpotomy anteriorly and then amputate with cervix away from the vaginal fornix. I then continued the colpotomy circumferentially. I made sure to include any of the endometrial implants with the specimen. Once this was performed, the regulatory affairs assistant removed the uterus and cystic tissue, through the vagina. She then left the a lap sponge in the vagina to maintain the pneumoperitoneum. . There were some areas of endometriosis in the culdesac near the cuff, so these were excised with the uterus and sent for pathology. In addition there were some areas on the anterior abdominal wall superior to the bladder and these were excised with the césar and then the bases were cauterized. These were sent for pathology. I then began closure of the vaginal cuff. The uterus was left in the vagina to maintain pneumoperitoneum. I closed the apices of the vaginal cuff with 2-0 Vicryl V lock sutures with a colposuspension through the uterosacral ligaments. This suspended the apices of the vaginal cuff. I extended this to the midline from both sides and overlapped the V lock sutures in the midline. Excellent closure is noted and hemostasis is achieved. All the needles were removed from the patient's abdomen. Now, the robotic instruments were removed and the robot was docked back to laparoscopy. The pelvis was irrigated. There was no active bleeding noted. Bilateral ureters were never able to be seen the entire time during the dissection, but I could see the right one after the uterus was removed and it was peristalsing. There was no excessive bleeding noted but all the areas where the endometriosis was removed or the dissection was excessive had surface oozing. I placed surgiflow on these areas to prevent excessive blood loss. There was hemostasis. The trocars were removed under direct visualization. The laparoscopic sites were visualized and found to be hemostatic. The trocar sites were injected with 0.25% Marcaine. The skin incisions were closed with 4-0 Monocryl in a subcuticular fashion and then with Dermabond. Op sites were placed over the incision sites. The instruments were removed from the vagina and I noted there were no abrasions. Sponge, lap, needle and instrument counts correct times two. Patient was awakened and taken to recovery in a stable condition. Findings of the Procedure uterus plastered to the posterior uterus Large right endometrioma with adhesions Could not see culdesac multiple areas of active and inactive endometriosis Allergies and Home Medications Allergies Coded Allergies: No Known Drug Allergies (Unverified , 11/08/18) Home Medications Acetaminophen 500 Mg Tablet, 1,000 MG PO Q8HR Prescribed by: LEONIE ROSS on 12/15/20899 Docusate Sodium 100 Mg Capsule, 100 MG PO BID Prescribed by: LEONIE ROSS on 12/15/20899 Estradiol 2 Mg Tablet, 2 MG PO DAILY Prescribed by: LEONIE ROSS on 12/15/20899 Ibuprofen 600 Mg Tablet, 600 MG PO Q6H Prescribed by: LEONIE ROSS on 5/19/21 0900 Medroxyprogesterone Acetate 10 Mg Tablet, 10 MG PO DAILY Prescribed by: LEONIE ROSS on 12/15/20 0900 Oxycodone Hcl 5 Mg Tab, 5 MG PO Q4HR PRN for To achieve TAG Prescribed by: LEONIE ROSS on 12/15/20 0900 Simethicone 80 Mg Tab.chew, 80 MG PO Q2HR PRN for INDIGESTION/GAS Prescribed by: LEONIE ROSS on 12/15/20 0900 Patient Home Medication List Home Medication List Reviewed: Yes LEONIE ROSS DO December 14, 2020 14:20
[2020-12-14] MEDS ORDERED: ESTRADIOL 0.1 MG PATCH (CLIMARA) TD ONE (14:30)
[2020-12-14] MEDS ORDERED: fentaNYL INJ 100 MCG/2 ML AMP IVP ONE (14:45)
[2020-12-14] MEDS ORDERED: ONDANSETRON 4 MG/2 ML (SDV) Z0FRAN IVP PRN (14:45)
[2020-12-14] MEDS ORDERED: morphine INJ 10 MG/ML 1ML (SYR OR VIAL) IVP ONE (14:45)
[2020-12-14] MEDS ORDERED: ESTRADIOL 0.1 MG PATCH (CLIMARA) ONE (14:46)
[2020-12-14] MEDS: LACTATED RINGERS 1,000 ML IV SCH ×3 (14:46→23:53)
[2020-12-14] MEDS ORDERED: KETOROLAC 30 MG/ML VIAL ONE (14:46)
[2020-12-14 17:14] LABS: BASOPHILS % (AUTO) 0 % (0-10); EOSINOPHILS % (AUTO) 0 % (0-10); HEMATOCRIT 37 % (35-52); HEMOGLOBIN 12.9 g/dL (11.5-16.0); LYMPHOCYTES # (AUTO) 0.2 10^3/uL (1.0-4.0); LYMPHOCYTES % (AUTO) 2 % (12-44); MEAN CORPUSCULAR HEMOGLOBIN 31 pg (25-34); MEAN CORPUSCULAR HGB CONC 35 g/dL (32-36); MEAN CORPUSCULAR VOLUME 90 fL (80-99); MEAN PLATELET VOLUME 9.8 fL (9.0-12.2); MONOCYTES # (AUTO) 0.3 10^3/uL (0.0-1.0); MONOCYTES % (AUTO) 3 % (0-12); NEUTROPHILS % (AUTO) 95 % (42-75); PLATELET COUNT 201 10^3/uL (130-400); WHITE BLOOD COUNT 10.6 10^3/uL (4.3-11.0)
[2020-12-14 17:21] LABS: CHLORIDE 97 MMOL/L (98-107); POTASSIUM 3.5 MMOL/L (3.6-5.0); SODIUM 132 MMOL/L (135-145)
[2020-12-14 17:23] LABS: CALCIUM 8.3 MG/DL (8.5-10.1); GLUCOSE 166 MG/DL (70-105)
[2020-12-14 17:24] LABS: CARBON DIOXIDE 26 MMOL/L (21-32)
[2020-12-14 17:27] LABS: CREATININE SERUM 0.61 MG/DL (0.60-1.30); GFR ESTIMATED > 60
[2020-12-14 17:28] LABS: BUN/CREATININE RATIO 15
[2020-12-14] MEDS ORDERED: IBUPROFEN 600 MG (MOTRIN) TAB PO SCH (18:00)
[2020-12-14] MEDS: KCL 20 MEQ TAB (K-DUR) PO SCH (18:26)
[2020-12-14] MEDS: KETOROLAC 30 MG/ML VIAL IV SCH (20:47)
[2020-12-14] MEDS: DOCUSATE SODIUM 100 MG (COLACE) CAP PO SCH (20:47)
[2020-12-14] MEDS: ACETAMINOPHEN 500 MG TAB (TYLENOL) PO SCH (22:00)
[2020-12-15 01:00] VITALS: BP 85/48
[2020-12-15] MEDS: KETOROLAC 30 MG/ML VIAL IV SCH (02:28)
[2020-12-15 06:01] VITALS: BP 89/54
[2020-12-15] MEDS: ACETAMINOPHEN 500 MG TAB (TYLENOL) PO SCH (06:03)
[2020-12-15 06:17] LABS: HEMATOCRIT 35 % (35-52); HEMOGLOBIN 11.9 g/dL (11.5-16.0); MEAN CORPUSCULAR HEMOGLOBIN 30 pg (25-34); MEAN CORPUSCULAR HGB CONC 34 g/dL (32-36); MEAN CORPUSCULAR VOLUME 89 fL (80-99); MEAN PLATELET VOLUME 10.5 fL (9.0-12.2); PLATELET COUNT 199 10^3/uL (130-400); WHITE BLOOD COUNT 7.8 10^3/uL (4.3-11.0)
[2020-12-15 06:21] LABS: CHLORIDE 104 MMOL/L (98-107); POTASSIUM 4.3 MMOL/L (3.6-5.0); SODIUM 138 MMOL/L (135-145)
[2020-12-15 06:23] LABS: CALCIUM 8.9 MG/DL (8.5-10.1); GLUCOSE 110 MG/DL (70-105)
[2020-12-15 06:24] LABS: CARBON DIOXIDE 27 MMOL/L (21-32)
[2020-12-15 06:27] LABS: CREATININE SERUM 0.55 MG/DL (0.60-1.30); GFR ESTIMATED > 60
[2020-12-15 06:28] LABS: BUN/CREATININE RATIO 16
[2020-12-15 08:30] VITALS: BP 105/69
[2020-12-15] MEDS ORDERED: DCS100C PO (09:00)
[2020-12-15] MEDS ORDERED: IBUP-844 PO (09:00)
[2020-12-15] MEDS ORDERED: MEDR10TA9 PO (09:00)
[2020-12-15] MEDS ORDERED: ESTR2TAB4 PO (09:00)
[2020-12-15] MEDS ORDERED: IBUPROFEN 600 MG (MOTRIN) TAB PO SCH (09:00)
[2020-12-15] MEDS ORDERED: OXC5T PO (09:00)
[2020-12-15] MEDS ORDERED: SMT80CT PO (09:00)
[2020-12-15] MEDS ORDERED: ACET-93 PO (09:00)
--- NOTE | 2020-12-15 09:03 | Discharge Inst-Women's Service ---
Discharge Inst-Women's Serv Depart Medication/Instructions New, Converted or Re-Newed RX: Other (transmitted and on chart) Instructions nothing in vagina for 8-10 weeks (until cleared by physician) no driving for 1 week no lifting over 25 lbs until cleared by physician Final Diagnosis endometriosis, stage IV right endometrioma Problems Reviewed?: Yes Consults/Follow Up Additional Follow Up: Yes (1-2 week for incision check and 8-10 weeks for pelvic exam ) Activity Activity: Activity as Tolerated Driving Instructions: No Driving for 1 Week NO SMOKING: NO SMOKING Nothing Inside Vagina: No Douching, No [place], No Tampons Diet Discharge Diet: No Restrictions Symptoms to Report to : Bleeding Excessive, Fever Over 101 Degrees F, Vaginal Bleeding Increase, Cramps in Feet or Legs, Vaginal Discharge Foul For Any Problems or Questions: Contact Your Physician Skin/Wound Care Infection Signs and Symptoms: Increased Redness, Foul Odor of Wound, Increased Drainage, Skin Itchy or Has a Rash, Increased Swelling, Temperature Above 101 F Operative Area Clean and Dry: You May Remove Bandage (in 3 days or if soiled or wet) Stitches/[place]/Dermabond: Dermabond Bathing Instructions: LEONIE Irizarry DO December 15, 2020 09:03
--- NOTE | 2020-12-15 09:37 | Anesthesia-General Post-Op ---
General Patient Condition Mental Status/LOC: Same as Preop Cardiovascular: Satisfactory Nausea/Vomiting: Absent Respiratory: Satisfactory Pain: Controlled Complications: Absent Post Op Complications Complications None Follow Up Care/Instructions Patient Instructions None needed. Anesthesia/Patient Condition Patient Condition Patient is doing well, no complaints, stable vital signs, no apparent adverse anesthesia problems. No complications reported per nursing. GRACIELA SHABAZZ CRNA December 15, 2020 09:37
[2020-12-15] MEDS: KCL 20 MEQ TAB (K-DUR) PO SCH (09:38)
[2020-12-15] MEDS: DOCUSATE SODIUM 100 MG (COLACE) CAP PO SCH (09:39)
[2020-12-15 11:00] VITALS: BP 105/69
[2020-12-21] MEDS ORDERED: ESTRADIOL PATCH REMOVAL TP SCH (08:59)
[2020-12-21] MEDS ORDERED: ESTRADIOL 0.1 MG PATCH (CLIMARA) TOP SCH (09:00)
== END 2020-12-15 11:00 | disposition home or self-care (01) ==
LOC: SDC 09:08 → WS 15:30 → SDC 12-15 11:00
PROVIDERS: ATTEND Obstetrics & Gynecology
DX: D25.1 Intramural leiomyoma of uterus (principal); N80.0 Endometriosis of uterus; N83.201 Unspecified ovarian cyst, right side
CPT/HCPCS: 36415; 80048; 81000; 84703; 85007; 85025; 85027; 86850; 86900; 86901; 87081; 88305; 88307; 94664; 94760

== ENCOUNTER → 2021-09-09 | Outpatient (CLI) | payer BC, OTHER ==
[~2021-09-09] MED LIST changes: +ACET-93 PO; +DOCU-239 PO; +ESTR2TAB4 PO; +MEDR10TA9 PO; +SMT80CT PO
--- NOTE | 2021-09-09 16:10 | Diagnostic Imaging Report ---
INDICATION: Routine screening. COMPARISON is made with prior mammograms from 03/24/2019 and 03/22/2018. 2-D and 3-D bilateral screening mammography was performed with CAD. Both breasts are heterogeneously dense, limiting the sensitivity of mammography. No mass or malignant-appearing microcalcifications are seen. Axillae are unremarkable. IMPRESSION: BI-RADS Category 1 No mammographic features suspicious for malignancy are identified. ACR BI-RADS Category 1: Negative. Result letter will be mailed to the patient. Note: At least 10% of breast cancer is not imaged by mammography. Dictated on workstation # [id number]
== END ==
LOC: RAD 15:15
PROVIDERS: ATTEND Obstetrics & Gynecology
DX: Z12.31 Encounter for screening mammogram for malignant neoplasm of breast (principal)
CPT/HCPCS: 77063; 77067

== ENCOUNTER 2021-09-23 13:21 | Outpatient (RCR) | payer BC | END 2021-09-26 | disposition home or self-care (01) | PROVIDERS: ATTEND Obstetrics & Gynecology | DX: R29.898 Other symptoms and signs involving the musculoskeletal system (principal) ==

== ENCOUNTER 2021-10-07 14:25 | Outpatient (RCR) | payer BC | END 2021-10-27 | disposition home or self-care (01) | PROVIDERS: ATTEND Obstetrics & Gynecology | DX: R29.898 Other symptoms and signs involving the musculoskeletal system (principal); R10.9 Unspecified abdominal pain; N39.3 Stress incontinence (female) (male) ==